=== PATIENT | female | born 1990 | race Caucasian/White ===

== ENCOUNTER 2016-05-15 05:26 | Emergency (ER) | payer MEDICAID ==
[2016-05-15 05:37] VITALS: BP 157/100
--- NOTE | 2016-05-15 05:50 | EDM.PDOC ---
ED HPI ENT - General Chief Complaint: ENT Problem Stated Complaint: TOOTHACHE Time Seen by Provider: 05/15/16 05:43 - History of Present Illness INITIAL COMMENTS - FREE TEXT/NARRATIVE: 26-year-old female presents emergency room with dental pain. This started 2 days ago affecting lower teeth on the right side. The patient thinks she has felt warm but has not checked her temperature. The patient has had problems with her teeth in the past. With this pain she has developed some right-sided ear pain. She was referred to a dentist in [place] I was not able to go and seek did not have transportation. Patient denies any other pain or complaints at this time. she has tried Tylenol twice daily and ibuprofen 800 mg twice daily without any improvement. - Related Data Allergies/ADRs: Allergies Allergy/AdvReac Type Severity Reaction Status Date / Time lactose Allergy Diarrhea Verified 05/15/16 05:35 Home Meds: Home Meds Estradiol [Estrace] 4 mg PO DAILY 01/10/16 [History] Spironolactone [Aldactone] 10 mg PO DAILY 01/10/16 [History] PARoxetine [Paxil] 30 mg PO DAILY 02/19/16 [History] Ibuprofen 800 mg PO ASDIRECTED PRN 04/07/16 [History] Amoxicillin 500 mg PO TID #30 tab 05/15/16 [Rx] Hydrocodone/Acetaminophen [[place] 5-325 Tablet] 1 - 2 each PO Q6H PRN #10 tablet 05/15/16 [Rx] Hydrocodone/Acetaminophen [[place] 5-325] 1 - 2 tab PO Q6H PRN #5 tablet #5 Samples 05/15/16 [Rx] Past Medical History HEENT History: Reports: Impaired vision Other HEENT History: wears glasses Genitourinary History: Reports: Renal calculus Other OB/BYN History: Patient is a transgender and identifies as female Psychiatric History: Reports: Anxiety, Depression, Suicidal ideation - Past Surgical History Female Surgical History: Reports: Lithotripsy/ESWL Social & Family History - Family History Family Medical History: Noncontributory - Tobacco Use Smoking Status *Q: Never Smoker Second Hand Smoke Exposure: No - Caffeine Use Caffeine Use: Reports: None - Recreational Drug Use Recreational Drug Use: No - Living Situation & Occupation Living situation: Reports: single, alone Occupation: unemployed ED ROS ENT - Review of Systems Review Of Systems: See Below Constitutional: Reports: fever. Denies: chills, malaise, weakness HEENT: Reports: Dental pain, Ear pain Respiratory: Reports: no symptoms Cardiovascular: Reports: No symptoms GI/Abdominal: Reports: No symptoms ED EXAM, ENT - Physical Exam Exam: See Below Exam Limited By: No limitations General Appearance: alert, moderate distress (she has mild to moderate distress secondary to the pain) Eye Exam: bilateral eye: normal inspection Ears: normal external exam, normal canal, normal TMs, other (she has pain in the right ear but no signs of acute infection at this time this is probably radiating pain from her jaw) Nose: normal inspection, normal mucousa, no blood Mouth/Throat: Normal gums, Normal lips, Normal oropharynx, Other (patient has multiple teeth in need of repair several had rotted deeper than the gum line. On her right lower jaw she has one tooth that is minimally remaining, secondary to decay, with surrounding erythema the tooth just behind it has significant decay) Head: atraumatic, normocephalic Neck: normal inspection, supple, non-tender, full range of motion. No: lymphadenopathy (L), lymphadenopathy (R) Respiratory/Chest: no respiratory distress, lungs clear, normal breath sounds Cardiovascular: regular rate, rhythm, no edema, no murmur Course - Vital Signs Last Recorded V/S: Last Vital Signs Temp 36.6 C 05/15/16 05:33 Pulse 85 05/15/16 05:33 Resp 16 05/15/16 05:33 BP 157/100 H 05/15/16 05:33 Pulse Ox 99 05/15/16 05:33 - Orders/Labs/Meds Meds: Medications Discontinued Medications Generic Name Dose Route Start Last Admin Trade Name Mia PRN Reason Stop Dose Admin Amoxicillin 1,000 mg 05/15/16 05:50 05/15/16 06:06 Amoxil PO 05/15/16 05:51 1,000 mg ONETIME ONE Administration - Re-Assessments/Exams Free Text/Narrative Re-Assessment/Exam: 05/15/16 06:17 she was started on antibiotic she received a gram of amoxicillin prior to discharge. The patient will be given a starter pack of [place] #5 she is instructed not to take these until she gets home she is given precautions including not to drive or returning to work within 12 hours using this medication she understands that she will have to have somebody take her to the pharmacist to get her medications filled. Departure - Departure Time of Disposition: 05:55 Disposition: Home, Self-Care 01 Clinical Impression: Dental caries Prescriptions: Amoxicillin 500 mg PO TID #30 tab Hydrocodone/Acetaminophen [[place] 5-325 Tablet] 1 - 2 each PO Q6H PRN #10 tablet PRN Reason: Pain Instructions: Dental Caries, [id number] Referrals: Daisy Castanon PA-C [Primary Care Provider] - Forms: ED Department Discharge Additional Instructions: Return to the emergency room with any questions or problems. Followup with your dentist as soon as you can. you have been started on amoxicillin 500 mg take one 3 times daily until they are all gone. Use ibuprofen 800 mg 3 times a day. Take with food. You have been started on [place], this is hydrocodone with Tylenol, you have been given 5 from the emergency room stock and a prescription for another 10. Use one or 2 every 6 hours as needed for pain. Allow 12 hours after using this medication before driving or returning to work.
[2016-05-15] MEDS ORDERED: Acetaminophen/HYDROcodone 325-5 MG Tab ONE (05:53)
[2016-05-15] MEDS: Amoxicillin 500 MG Cap PO ONE (06:06)
== END 2016-05-15 06:07 | disposition home or self-care (01) ==
LOC: JD.ED 05:26
DX: K02.9 Dental caries, unspecified (principal)
CPT/HCPCS: 99283; A9270; 99282

== ENCOUNTER 2016-05-29 18:52 | Emergency (ER) | payer MEDICAID ==
[2016-05-29 19:21] VITALS: BP 132/101
--- NOTE | 2016-05-29 19:44 | EDM.PDOC ---
ED HPI NEURO - General Chief Complaint: Neurological Problem Stated Complaint: DIZZY SPELLS, HEADACHE Time Seen by Provider: 05/29/16 19:15 Source of Information: Reports: Patient History Limitations: Reports: No limitations - History of Present Illness INITIAL COMMENTS - FREE TEXT/NARRATIVE: The patient presents with dizziness. She says she feels off balance. This is made worse by changing positions and looking to the left. This started yesterday when she had a severe headache and she had photophobia with that. She has no numbness or weakness. She has no fever, chills, cough, congestion or runny nose. She does have some pressure in her ears. This has never happened to her before. She has no numbness or weakness. She has no chest pain or shortness of breath. She says for a few months she has been forgetting a lot lately. She has missed a few doctors appointments. Timing/Duration: Reports: Day(s): (Yesterday) Quality (Neuro Complaint): Reports: other (Dizziness) Improves with: Reports: None Worsens with: Reports: Movement Associated Symptoms: Reports: headaches. Denies: shortness of breath, chest pain, fever/chills, loss of appetite, nausea/vomiting - Related Data Allergies/ADRs: Allergies Allergy/AdvReac Type Severity Reaction Status Date / Time lactose Allergy Diarrhea Verified 05/29/16 19:21 Home Meds: Home Meds Estradiol [Estrace] 4 mg PO DAILY 01/10/16 [History] Spironolactone [Aldactone] 10 mg PO DAILY 01/10/16 [History] PARoxetine [Paxil] 30 mg PO DAILY 02/19/16 [History] Meclizine [Antivert] 25 mg PO Q6H PRN #20 tablet 05/29/16 [Rx] Past Medical History HEENT History: Reports: Impaired vision Other HEENT History: wears glasses Genitourinary History: Reports: Renal calculus Other OB/BYN History: Patient is a transgender and identifies as female Psychiatric History: Reports: Anxiety, Depression, Suicidal ideation - Past Surgical History Female Surgical History: Reports: Lithotripsy/ESWL Social & Family History - Family History Family Medical History: Noncontributory - Tobacco Use Smoking Status *Q: Never Smoker Second Hand Smoke Exposure: No - Caffeine Use Caffeine Use: Reports: Soda - Recreational Drug Use Recreational Drug Use: No - Living Situation & Occupation Living situation: Reports: single, alone Occupation: unemployed ED ROS GENERAL - Review of Systems Review Of Systems: See Below Constitutional: Reports: no symptoms HEENT: Reports: Other (Pressure in her ears) Respiratory: Reports: No Symptoms Cardiovascular: Reports: No symptoms Endocrine: Reports: no symptoms GI/Abdominal: Reports: No symptoms : Reports: no symptoms Musculoskeletal: Reports: no symptoms Skin: Reports: no symptoms Neurological: Reports: Dizziness, Headache Psychiatric: Reports: No symptoms ED EXAM, NEURO - Physical Exam Exam: See Below Exam Limited By: No limitations General Appearance: alert, no apparent distress Eye Exam: left eye: nystagmus (When looking to the left) Ears: normal external exam, normal canal, normal TMs Nose: normal inspection Throat/Mouth: Normal inspection Head Exam: atraumatic, normocephalic Neck: normal inspection Respiratory/Chest: no respiratory distress, lungs clear, normal breath sounds Cardiovascular: regular rate, rhythm, no edema, no murmur GI/Abdominal: soft, non tender, no organomegaly, no mass Neurological: alert, CN II-XII intact, no motor/sensory deficits, oriented x 3, other (Nystagmus and dizziness when looking to the left) Course - Vital Signs Last Recorded V/S: Last Vital Signs Temp 98.2 F 05/29/16 19:15 Pulse 84 05/29/16 19:15 Resp 16 05/29/16 19:15 BP 132/101 H 05/29/16 19:15 Pulse Ox 98 05/29/16 19:15 Orthostatic Blood Pressure [ 128/98 Standing] Orthostatic Blood Pressure [ 129/101 Sitting] Orthostatic Blood Pressure [ 122/96 Supine] - Orders/Labs/Meds Orders: Active Orders 24 hr Category Date Time Status Cardiac Monitoring [RC] . DIRECTED Care 05/29/16 19:37 Active Head wo Cont [CT] Stat Exams 05/29/16 19:38 Taken COMPREHENSIVE METABOLIC PN,CMP [CHEM] Stat Lab 05/29/16 19:48 Results TSH [CHEM] Stat Lab 05/29/16 19:48 Results Labs: Laboratory Tests 05/29/16 05/29/16 Range/Units 19:48 19:48 WBC 7.61 (3.98-10.04) K/mm3 RBC 4.80 (3.98-5.22) M/mm3 Hgb 14.3 (11.2-15.7) gm/L Hct 40.6 (34.1-44.9) % MCV 84.6 (79.4-94.8) fl MCH 29.8 (25.6-32.2) pg MCHC 35.2 (32.2-35.5) g/dl RDW Std Deviation 39.7 (36.4-46.3) fL Plt Count 188 (182-369) K/mm3 MPV 10.7 (9.4-12.3) fl Neut % (Auto) 52.7 (34.0-71.1) % Lymph % (Auto) 35.6 (19.3-51.7) % [place] % (Auto) 10.1 (4.7-12.5) % Eos % (Auto) 1.2 (0.7-5.8) Baso % (Auto) 0.1 (0.1-1.2) % Neut # 4.01 (1.56-6.13) K/mm3 Lymph # 2.71 (1.18-3.74) K/mm3 [place] # 0.77 H (0.24-0.36) K/mm3 Eos # 0.09 (0.04-0.36) K/mm3 Baso # 0.01 (0.01-0.08) K/mm3 Sodium 140 (136-145) mEq/L Potassium 3.6 (3.5-5.1) mEq/L Chloride 103 (98-107) mEq/L Carbon Dioxide 28 (21-32) mEq/L Anion Gap 12.6 (5-15) Creatinine 1.0 (0.55-1.02) mg/dL Est Cr Clr Drug Dosing 82.18 mL/min Estimated GFR (MDRD) > 60 (>60) mL/min BUN/Creatinine Ratio 12.0 L (14-18) Glucose 84 (74-106) mg/dL Calcium 9.1 (8.5-10.1) mg/dL Total Bilirubin 0.7 (0.2-1.0) mg/dL AST 17 (15-37) U/L ALT 29 (14-59) U/L Alkaline Phosphatase 78 (46-116) U/L Total Protein 6.9 (6.4-8.2) g/dl Albumin 3.5 (3.4-5.0) g/dl Globulin 3.4 gm/dL Albumin/Globulin Ratio 1.0 (1-2) TSH 3rd Generation 1.036 (0.358-3.74) uIU/mL Meds: Medications Discontinued Medications Generic Name Dose Route Start Last Admin Trade Name Freq PRN Reason Stop Dose Admin Meclizine HCl 25 mg 05/29/16 19:38 05/29/16 19:50 Antivert PO 05/29/16 19:39 25 mg ONETIME ONE Administration - Re-Assessments/Exams Free Text/Narrative Re-Assessment/Exam: 05/29/16 19:45 I will give her some antivert 25mg by mouth. I will get a CT of her head and check labs. 05/29/16 20:[address] looks good. Her CBC and CMP look good. Her TSH is normal. She feels a little better. I will get her some antivert and have her follow up with Dr Rey and Daisy Castanon. Departure - Departure Time of Disposition: 20:40 Disposition: Home, Self-Care 01 Condition: good Clinical Impression: Memory change Benign positional vertigo Qualifiers: Laterality: left Qualified Code(s): H81.12 - Benign paroxysmal vertigo, left ear Prescriptions: Meclizine [Antivert] 25 mg PO Q6H PRN #20 tablet PRN Reason: Dizziness Referrals: Daisy Castanon PA-C [Primary Care Provider] - 1 Week Forms: ED Department Discharge Additional Instructions: Take the antivert every 6 hours as needed for the dizziness. Follow up with Daisy Castanon for your memory issues. Follow up with Dr Rey for the dizziness. You can make an appointment by calling [phone]. - My Orders Last 24 Hours: My Active Orders 05/29/16 19:37 Cardiac Monitoring [RC] . DIRECTED 05/29/16 19:38 Head wo Cont [CT] Stat 05/29/16 19:48 COMPREHENSIVE METABOLIC PN,CMP [CHEM] Stat TSH [CHEM] Stat - Assessment/Plan Last 24 Hours: My Active Orders 05/29/16 19:37 Cardiac Monitoring [RC] . DIRECTED 05/29/16 19:38 Head wo Cont [CT] Stat 05/29/16 19:48 COMPREHENSIVE METABOLIC PN,CMP [CHEM] Stat TSH [CHEM] Stat
--- NOTE | 2016-05-30 16:15 | CT ---
Head CT Technique: Multiple axial sections through the brain were obtained. Intravenous contrast was not utilized. Comparison: No previous intracranial imaging. Findings: Ventricles along with basal cisterns and sulci over the convexities are within normal limits for the patient's age. No abnormal parenchymal densities are seen. No evidence of intracranial hemorrhage. No midline shift or mass effect is seen. No discrete calvarial abnormality is seen. Mastoid sinuses and middle ear cavities are clear. Mild mucosal thickening is seen with the right maxillary sinus with moderate mucosal thickening seen within the ethmoid sinuses. No air-fluid levels are seen. Impression: 1. Sinus disease most likely chronic. 2. No acute intracranial abnormality is identified. Agree with preliminary report issued by [employer] (preliminary [facility] report dictated on 05/29/16, 9:10 PM Central Time) Diagnostic code #2 MTDD
== END 2016-05-29 20:53 | disposition home or self-care (01) ==
LOC: JD.ED 18:52
DX: H81.12 Benign paroxysmal vertigo, left ear (principal); R41.3 Other amnesia; F41.9 Anxiety disorder, unspecified; F32.9 Major depressive disorder, single episode, unspecified; Z79.899 Other long term (current) drug therapy; Z91.09 Other allergy status, other than to drugs and biological substances
CPT/HCPCS: 36415; 70450; 80053; 84443; 85025; 99284; A9270; 99283

== ENCOUNTER 2016-06-09 21:43 | Emergency (ER) | payer MEDICAID ==
[2016-06-09 21:55] VITALS: BP 116/83
--- NOTE | 2016-06-09 22:53 | EDM.PDOC ---
ED HISTORY OF PRESENT ILLNESS - General Chief Complaint: Respiratory Problem Stated Complaint: COUGH SORE THROAT Time Seen by Provider: 06/09/16 21:54 Source of Information: Reports: Patient, RN notes reviewed History Limitations: Reports: No limitations - History of Present Illness INITIAL COMMENTS - FREE TEXT/NARRATIVE: The patient states that she has had a dry cough and sore throat for the past 4 days. She is also had a slight amount of diarrhea, but attributes that to her diet. No recent fever, nausea, vomiting, constipation, or urinary symptoms. She has been taking [id number] Emergen-C, without any relief. 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 (see below) (Patient is transgender and identifies as female) Psychiatric History: Reports: Anxiety, Depression, Suicidal ideation - Past Surgical History HEENT Surgical History: Reports: Oral surgery ([place] teeth extraction) Female Surgical History: Reports: Lithotripsy/ESWL Social & Family History - Family History Family Medical History: Noncontributory - Tobacco Use Smoking Status *Q: Never Smoker Second Hand Smoke Exposure: No - Caffeine Use Caffeine Use: Reports: Soda - Alcohol Use Alcohol Use History: Yes Alcohol Use Frequency: Rarely - Recreational Drug Use Recreational Drug Use: No - Living Situation & Occupation Living situation: Reports: single, alone Occupation: unemployed ED ROS GENERAL - Review of Systems Review Of Systems: See Below Constitutional: Reports: no symptoms HEENT: Reports: No symptoms Respiratory: Reports: No Symptoms Cardiovascular: Reports: No symptoms Endocrine: Reports: no symptoms GI/Abdominal: Reports: Diarrhea (Slight, as per the HPI) : Reports: no symptoms Musculoskeletal: Reports: no symptoms Skin: Reports: no symptoms Neurological: Reports: No Symptoms Psychiatric: Reports: No symptoms Hematologic/Lymphatic: Reports: no symptoms Immunologic: Reports: no symptoms ED EXAM, GENERAL - Physical Exam Exam: See Below Exam Limited By: No limitations General Appearance: alert, WD/WN, no apparent distress Eye Exam: bilateral eye: EOMI, normal inspection Ears: normal external exam, normal canal, hearing grossly normal, normal TMs Ear Exam: bilateral ear: auricle normal, canal normal, TM normal Nose: normal inspection, no blood, other (Bilateral nasal mucosal edema) Throat/Mouth: Normal inspection, Normal lips, Normal teeth, Normal gums, Normal oropharynx, Normal voice, No airway compromise Head: atraumatic, normocephalic Neck: normal inspection, full range of motion. No: lymphadenopathy (L), lymphadenopathy (R) Respiratory/Chest: no respiratory distress, lungs clear, normal breath sounds, no accessory muscle use Cardiovascular: normal peripheral pulses, regular rate, rhythm, no gallop, no JVD, no murmur, no rub GI/Abdominal: normal bowel sounds, soft, non tender, no organomegaly, no distention, no abnormal bruit, no mass Back Exam: normal inspection, full range of motion, NT Extremities: normal inspection, normal range of motion, no pedal edema, normal capillary refill Neurological: alert, oriented, normal cognition, no motor/sensory deficits Psychiatric: normal affect Skin Exam: Warm, Dry, Intact, Normal color, No rash Lymphatic: no adenopathy Course - Vital Signs Last Recorded V/S: Last Vital Signs Temp 37.3 C 06/09/16 21:51 Pulse 109 H 06/09/16 21:51 Resp 16 06/09/16 21:51 BP 116/83 06/09/16 21:51 Pulse Ox 96 06/09/16 21:51 - Orders/Labs/Meds Orders: Active Orders 24 hr Category Date Time Status Chest 2V [CR] Stat Exams 06/09/16 22:07 Taken CULTURE STREP A CONFIRMATION [RM] Stat Lab 06/09/16 22:05 Results STREP SCRN A RAPID W CULT CONF [RM] Stat Lab 06/09/16 22:05 Results Labs: Laboratory Tests 06/09/16 06/09/16 Range/Units 22:17 22:17 WBC 5.19 (3.98-10.04) K/mm3 RBC 4.74 (3.98-5.22) M/mm3 Hgb 14.1 (11.2-15.7) gm/L Hct 40.1 (34.1-44.9) % MCV 84.6 (79.4-94.8) fl MCH 29.7 (25.6-32.2) pg MCHC 35.2 (32.2-35.5) g/dl RDW Std Deviation 40.8 (36.4-46.3) fL Plt Count 147 L (182-369) K/mm3 MPV 11.7 (9.4-12.3) fl Neutrophils % (Manual) 83 H (40-60) % Band Neutrophils % 0 (0-10) % Lymphocytes % (Manual) 12 L (20-40) % Atypical Lymphs % 0 % Monocytes % (Manual) 5 (2-10) % Eosinophils % (Manual) 0 L (0.7-5.8) % Basophils % (Manual) 0 L (0.1-1.2) Platelet Estimate Adequate RBC Morph Comment Normal Sodium 144 (136-145) mEq/L Potassium 3.6 (3.5-5.1) mEq/L Chloride 108 H (98-107) mEq/L Carbon Dioxide 26 (21-32) mEq/L Anion Gap 13.6 (5-15) BUN 12 (7-18) mg/dL Creatinine 1.0 (0.55-1.02) mg/dL Est Cr Clr Drug Dosing 82.18 mL/min Estimated GFR (MDRD) > 60 (>60) mL/min BUN/Creatinine Ratio 12.0 L (14-18) Glucose 121 H (74-106) mg/dL Calcium 8.9 (8.5-10.1) mg/dL Total Bilirubin 0.7 (0.2-1.0) mg/dL AST 19 (15-37) U/L ALT 22 (14-59) U/L Alkaline Phosphatase 76 (46-116) U/L Total Protein 6.6 (6.4-8.2) g/dl Albumin 3.7 (3.4-5.0) g/dl Globulin 2.9 gm/dL Albumin/Globulin Ratio 1.3 (1-2) - Radiology Interpretation Free Text/Narrative:: Two-view chest radiograph appears to be grossly normal. Cardiac silhouette is within normal limits. No pulmonary vascular congestion. No pleural effusions. No focal infiltrate. No pneumothorax. Formal read per the Radiologist pending. - Re-Assessments/Exams Free Text/Narrative Re-Assessment/Exam: 06/09/16 22:56 Test results discussed with the patient. Today's workup is entirely unremarkable, and is consistent with a viral URI with cough. I am recommending [id number] symptomatic relief. Departure - Departure Time of Disposition: 22:57 Disposition: Home, Self-Care 01 Condition: good Clinical Impression: Viral URI with cough Referrals: Daisy Castanon PA-C [Primary Care Provider] - Forms: ED Department Discharge Additional Instructions: You were seen in the emergency room tonight for a dry cough and sore throat for the past 4 days. Workup in the ER included blood work, a rapid strep test, an influenza swab, and a chest x-ray. Your entire workup was normal. You do not have strep throat. You do not have influenza. You do not have pneumonia. You MOST LIKELY have a viral URI, also known as a common cold. Unfortunately, there is no treatment for common cold. It simply has to run its course. We DO NOT recommend you take any [id number] cough or cold remedies. They do not work, yet do have side effects. For symptomatic relief, we suggest purchasing [id number] oxymetazoline nasal spray in a "pump mist" bottle. Junction one spray up each nostril, wait 5 minutes, then spray a second spray up each nostril. Repeat every 12 hours, not to exceed 5 days maximum. We also recommend nasal saline in a pressurized can, such as "Simply Saline". Junction this up each nostril several times a day. For your sore throat, we recommend Chloraseptic spray, warm saltwater gargles, Tylenol or ibuprofen. If your symptoms fail to improve within 5-7 days, please followup with your PCP , Daisy Castanon. If any other problems, please do not hesitate to return to the ER. - My Orders Last 24 Hours: My Active Orders 06/09/16 22:05 CULTURE STREP A CONFIRMATION [RM] Stat STREP SCRN A RAPID W CULT CONF [RM] Stat 06/09/16 22:07 Chest 2V [CR] Stat - Assessment/Plan Last 24 Hours: My Active Orders 06/09/16 22:05 CULTURE STREP A CONFIRMATION [RM] Stat STREP SCRN A RAPID W CULT CONF [RM] Stat 06/09/16 22:07 Chest 2V [CR] Stat
--- NOTE | 2016-06-10 10:00 | CR ---
Chest: Two views of the chest were obtained. Comparison: No previous chest x-ray. Heart size and mediastinum are normal. Lungs are clear. Bony structures appear unremarkable for the patient's age. Impression: 1. Nothing acute is identified on two-view chest x-ray. Diagnostic code #1
== END 2016-06-09 22:55 | disposition home or self-care (01) ==
LOC: JD.ED 21:43
DX: J06.9 Acute upper respiratory infection, unspecified (principal); F41.8 Other specified anxiety disorders; Z91.011 Allergy to milk products
CPT/HCPCS: 36415; 71020; 71020-26; 80053; 85025; 87081; 87430; 87804; 99282; 99284

== ENCOUNTER 2023-11-10 20:26 | Emergency (ER) | payer MEDICAID ==
[2023-11-10 20:51] LABS: APPEARANCE,URINE CLEAR (Clear); BILIRUBIN,URINE NEGATIVE (Negative); COLOR,URINE YELLOW (Yellow); GLUCOSE,URINE NEGATIVE (Negative); KETONES,URINE NEGATIVE (Negative); LEUKOCYTE ESTERASE,URINE NEGATIVE (Negative); NITRITE,URINE NEGATIVE (Negative); OCCULT BLOOD,URINE NEGATIVE (Negative); PH,URINE 6.5 (5.0-8.0); PROTEIN,URINE 1+ (Negative); UROBILINOGEN,URINE 0.2 (0.2-1.0)
[2023-11-10 21:04] LABS: BACTERIA,URINE FEW /hpf (FEW); EPITHELIAL CELLS,URINE 0-5 /hpf (0-5); HYALINE CASTS,URINE 0-5 /lpf (0-5); MUCUS,URINE MANY /hpf (FEW); RBC,URINE 0-5 /hpf (0-5); WBC,URINE 0-5 /hpf (0-5)
[2023-11-10 21:04] LABS: BASOPHILS PERCENT AUTO 0.5 % (0.0-1.0); EOSINOPHILS ABSOLUTE AUTO 0.2 K/mm3 (0.0-0.4); EOSINOPHILS PERCENT AUTO 3.8 % (0.0-6.0); HEMOGLOBIN 14.2 gm/dl (12.0-16.0); IMMATURE GRAN ABSOLUTE AUTO 0.02 K/mm3 (0.00-0.05); IMMATURE GRAN PERCENT AUTO 0.3 % (0.0-0.4); LYMPHOCYTES ABSOLUTE AUTO 2.9 K/mm3 (1.0-4.8); LYMPHOCYTES PERCENT AUTO 50.9 % (24.0-44.0); MEAN CORPUSCULAR HEMOGLOBIN 29.3 pg (28.0-32.0); MEAN CORPUSCULAR HGB CONC 34.6 g/dl (32.0-36.0); MEAN CORPUSCULAR VOLUME 84.5 fl (83.0-99.0); MEAN PLATELET VOLUME 11.6 fl (9.4-12.3); MONOCYTES ABSOLUTE AUTO 0.6 K/mm3 (0.0-0.8); MONOCYTES PERCENT AUTO 11.1 % (0.0-8.0); NEUTROPHILS ABSOLUTE AUTO 1.9 K/mm3 (1.8-7.7); NEUTROPHILS PERCENT AUTO 33.4 % (41.0-71.0); PLATELET COUNT,PLT 162 K/mm3 (150-400); RED BLOOD CELL COUNT 4.85 M/mm3 (4.10-5.30); WHITE BLOOD CELL COUNT,WBC 5.74 K/mm3 (3.9-11.3)
[2023-11-10 21:25] LABS: A/G RATIO 1.3 (1-2); ALBUMIN 3.8 g/dl (3.4-5.0); ANION GAP 13.5 (5-15); BILIRUBIN TOTAL 0.6 mg/dL (0.2-1.0); BUN/CREATININE RATIO 11.1 (14-18); C-REACTIVE PROTEIN 0.23 mg/dL (<0.30); CREATININE 0.9 mg/dL (0.55-1.02); EST CRCL DRUG DOSING (CG) 87.25 mL/min; MAGNESIUM 1.8 mg/dL (1.8-2.4); POTASSIUM,K 3.5 mEq/L (3.5-5.1); PROTEIN TOTAL,TP 6.8 g/dl (6.4-8.2)
[2023-11-10 22:11] LABS: CORONAVIRUS COVID-19 NAA NEGATIVE (NEGATIVE); INFLUENZA A NAA NEGATIVE (NEGATIVE); RESPIRATORY SYNCYTIAL VIR NAA NEGATIVE (NEGATIVE)
[2023-11-10 23:52] VITALS: BP 135/69; PULSE 72
== END 2023-11-10 23:51 | disposition home or self-care (01) ==
LOC: JD.ED 20:26
DX: N20.1 Calculus of ureter (principal); Z79.899 Other long term (current) drug therapy; Z91.040 Latex allergy status; Z91.011 Allergy to milk products
CPT/HCPCS: 0241U; 36415; 74176; 80053; 81001; 83735; 84703; 85025; 86140; 99284; 99283